=== PATIENT | female | born 1980 | race Two or more races ===

== ENCOUNTER 2023-08-19 17:23 | Emergency (ER) | payer MEDICAID, OTHER ==
[~2023-08-19] VITALS: Ht 177.8 cm; Wt 147.8 kg
[2023-08-19 19:28] VITALS: BP 111/81; PULSE 81; RESP 20; O2SAT 98
== END 2023-08-20 02:22 | disposition left against medical advice (07) ==
LOC: ER 17:23
DX: R51.9 Headache, unspecified (principal); R11.2 Nausea with vomiting, unspecified; Z53.21 Procedure and treatment not carried out due to patient leaving prior to being seen by health care provider